=== PATIENT | female | born 1945 | race Caucasian/White ===

== ENCOUNTER 2016-12-07 13:43 | Inpatient (IN) | payer MEDICARE, OTHER ==
--- NOTE | ~2016-12-07 | HP ---
History And Physical [facility] [address] [place]. [address] NAME: LUCIANA AKERS : 43 STATUS : ADM IN [facility]#: [id number] AGE: 71 ADM/REG DATE : 12/07/16 MR#: [id number] REPORT SERV DATE: 12/07/16 DICTATED BY: NISHA BAEZA DATE: 12/07/16 REPORT STATUS : Draft TRANSCRIBED BY: MODKelly DATE: 12/07/16 DATE OF ADMISSION: 12/07/2016 CHIEF COMPLAINT: "I have been sent by a [facility] doctor, since my platelets have been low." HISTORY OF PRESENT ILLNESS: This is a very pleasant 71-year-old female. She has no significant past medical history except for osteopenia and osteoporosis that she has not taken any medication, presenting today to [facility] after she has been evaluated in an outpatient physician care clinic in [place] for petechial rash that she developed on her legs and right arm since Saturday. According to the patient, about three to four weeks ago, she has had a tick bite that has been removed. She has not had any complaints since then. Maybe some loose bowel movements, but no diarrhea and some intermittent dual headaches. On Saturday, she started to develop petechial rash on bilateral lower extremities and right arm. At that time, she went to the clinic in [place] and initial blood work has found that her platelets were low. The patient has been started on doxycycline and she had been called back yesterday to repeat the blood work and it has been confirmed that her platelets were low. The patient felt extremely tired, but she did not have any fever. No chest pain or shortness of breath. No hematuria. No bloody stools. No hematemesis. No melena. No hematochezia. No gingival bleeding. No other complaints. The petechial rash remained the same. It has not progressed, but due to abnormalities of the platelets, the patient has been sent to [facility] Emergency Room. There was no headache. There was no chest pain or increasing shortness of breath. There was no PND or orthopnea. There was no nausea, vomiting or diarrhea reported. Just some loose bowel movements. No constipation. No other complaints. No recent hospitalization. No sick contacts. No exposure factors. After initial evaluation in the emergency room, Hospitalist Service has been asked for admission, further evaluation, and treatment. PAST MEDICAL HISTORY: Past medical history is significant for osteopenia and osteoporosis. PAST SURGICAL HISTORY: Includes and appendectomy. SOCIAL HISTORY: Denies tobacco, alcohol, or IV drugs. The patient does not have any drug allergies. MEDICATION: She takes doxycycline, started 3 days ago and glucosamine chondroitin. FAMILY HISTORY: Significant for PE. PHYSICAL EXAMINATION: VITAL SIGNS: The patient is afebrile. Blood pressure 133/63, heart rate 77, respiratory rate 16, and saturating 96% on room air. GENERAL: She is a very pleasant, well-developed, well-nourished female, in no acute distress. She is alert and oriented x3. Nonfocal. She follows all her commands appropriately. HEENT: Exam shows pupils equal, round, and reactive to light. Extraocular movements History And Physical [address] [address] NAME: LUCIANA AKERS : 43 STATUS : ADM IN [facility]#: [id number] AGE: 71 ADM/REG DATE : 12/07/16 MR#: [id number] REPORT SERV DATE: 12/07/16 DICTATED BY: INSHA BAEZA DATE: 12/07/16 REPORT STATUS : Draft TRANSCRIBED BY: GRETEL DATE: 12/07/16 intact. NECK: No JVD. No lymphadenopathy. No thyromegaly appreciated. CHEST: Eval shows bilateral air entry. Clear anteroposterior. No wheezes, crackles, or rhonchi appreciated. CARDIOVASCULAR: She has regular rate and rhythm. S1, S2 positive. No S3, no S4. No murmurs, rubs, or gallops appreciated. ABDOMEN: Soft with positive bowel sounds. Nontender. No guarding. No rebound. EXTREMITIES: No clubbing, cyanosis, or edema. NEUROLOGIC: She is alert and oriented x3. Nonfocal. She follows all her commands appropriately. SKIN: There is a petechial rash on the bilateral lower extremities as well as the left arm. MUSCULOSKELETAL: She is intact. LABORATORY DATA: Labs from today include: Sodium 143, potassium 4.1, chloride 111, CO2 of 27, BUN 11, creatinine 0.78, glucose is 90, calcium is 8.8. Her total protein 7.1, albumin 3, globulin 4.1, total bilirubin 0.4, alkaline phosphatase 127, ALT 33, AST 32. Also white count is 6.9, hemoglobin 11.6, hematocrit 34.6, and platelets are 5. INR is 1. ASSESSMENT AND PLAN: This is a very pleasant 71-year-old female with: 1. 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 2. Tick bite, recent. 3. History of osteoarthritis and osteoporosis. The patient is going to be admitted to Hospitalist Service. Regarding her thrombocytopenia, I am going to place her on high doses with dexamethasone. We are going to hold on platelet transfusion. For now, I have discussed with Dr. Arnold, Hematology, on-call, who is going to evaluate the patient. I am going to check on vitamin B12, ferritin and LDH. Follow all the labs closely. Recent tick bite, we are going to continue her doxycycline and check a [place] spotted fever antibody as well as Ehrlichia antibody. Follow up a.m. labs. We are going to provide reasonable pain and nausea control. Further workup and recommendation pending above. It is worthwhile to note that the patient is going to be followed by Dr. John Mackay. CF/MODL Nisha Baeza M.D. / [id number] CC: MD Alexandr Eagle II, MD
--- NOTE | ~2016-12-07 | CN ---
Consultation Report [facility] [address] [place]. [address] NAME: LUCIANA AKERS : 43 STATUS : ADM IN [facility]#: [id number] AGE: 71 ADM/REG DATE : 12/07/16 MR#: [id number] REPORT SERV DATE: 12/08/16 DICTATED BY: ROSMERY PAGE III DATE: 12/07/16 REPORT STATUS : Draft TRANSCRIBED BY: GRETEL DATE: 12/07/16 CONSULTATION NOTE DATE OF CONSULTATION: 12/07/2016 REASON FOR CONSULTATION: Thrombocytopenia. HISTORY OF PRESENT ILLNESS: Ms. Akers is a 71-year-old female, who previously has been very healthy who noted five days of a rash and easy bruising. The rash is predominantly located on her lower extremities and is red associated with some itching and tenderness to palpation. It has been worsening and has not resolved. She has not noted any recent bleeding. She also denies any recent night sweats, fevers, chills, or weight loss, or change in her energy level. She does report having a tick on her roughly one to two weeks ago but states this was on her for less than 24 hours. PAST MEDICAL HISTORY: Negative other than osteopenia. SOCIAL HISTORY: Negative for tobacco or alcohol abuse. She was recently , just 2 weeks ago. FAMILY HISTORY: Significant for her father who had leukemia and a brother who has had several blood clots. HOME MEDICATIONS: List is significant for doxycycline and glucosamine. ALLERGIES: NO KNOWN DRUG ALLERGIES. REVIEW OF SYSTEMS: A comprehensive review of systems was performed and is negative unless noted in the HPI. PHYSICAL EXAMINATION: VITAL SIGNS: Blood pressure 120/56, temperature is 98.2, pulse is 81, respirations 16. GENERAL: A well-developed well-nourished female in no acute distress. EYES: Pupils are round and reactive to light. Extraocular muscles are intact. There are anicteric sclerae. NECK: Supple with no masses or thyroid enlargement. No JVD. CARDIOVASCULAR: Regular rate and rhythm with no audible murmurs, gallops, or rubs. LUNGS: Clear to auscultation bilaterally with normal respiratory effort. ABDOMEN: Soft, nondistended, nontender. Positive bowel sounds with no hepatosplenomegaly. SKIN: Warm and dry with good skin turgor. There are petechiae on bilateral lower extremities and scattered ecchymoses on her extremities. PSYCH: She is alert, oriented, comprehends our conversation with normal judgment and affect. LYMPHATIC EXAM: Negative for any cervical, supraclavicular, infraclavicular, or axillary lymphadenopathy. Consultation Report [place] [id number] [address] NAME: LUCIANA AKERS : [birth year] STATUS : ADM IN [facility]#: [id number] AGE: 71 ADM/REG DATE : 12/07/16 MR#: [id number] REPORT SERV DATE: 12/08/16 DICTATED BY: ROSMERY PAGE III DATE: 12/07/16 REPORT STATUS : Draft TRANSCRIBED BY: GRETEL DATE: 12/07/16 DATA: Her CBC showed a white blood cell count of 6.9, hemoglobin of 11.6, and platelet count of 5. Her chemistry was reviewed and is significant for LDH, mildly elevated at 354. Her ferritin is normal. Her folic acid is normal, and B12 is normal. Her peripheral smear was personally reviewed. The white blood cell had normal morphology. Red blood cells had normal morphology, and platelets had decreased count but with large platelets. 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 Her peripheral smear was without significant findings to suggest an underlying bone marrow disorder. She has not had any bleeding. Therefore, there is no indication for transfusion at this time. We will start her on pulse dexamethasone 40 mg p.o. daily for four days. She likely can be discharged in the morning. BMA/GRETEL Rosmery Page III, M.D. / [id number] CC: MD Alexandr Eagle II, MD
--- NOTE | ~2016-12-07 | DS ---
Discharge Summary [facility] [address] [facility] [place]. [address] NAME: LUCIANA AKERS : 43 STATUS : DIS IN PAT#: [id number] AGE: 71 ADM/REG DATE : 12/07/16 MR#: [id number] REPORT SERV DATE: 12/09/16 DICTATED BY: DATE: REPORT STATUS : Draft TRANSCRIBED BY: MODL DATE: 12/09/16 ADMISSION DATE: 12/07/2016 DISCHARGE DATE: 12/09/2016 PRIMARY ONCOLOGIST: Luis Arnold M.D. DISCHARGE DIAGNOSES: 1. 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 2. Recent tick bite prior to admission. 3. Osteoarthritis/osteoporosis history. CONSULTATIONS: Dr. Luis Arnold, [facility], 12/08/2016. PERTINENT TESTS AND PROCEDURES: 1. CT of brain without contrast, 12/07/2016, impression: No evidence of acute intracranial traumatic injury or pathology. 2. Chest x-ray, 12/07/2016, impression: Lungs clear, heart size normal. No significant interval change from November 2015. 3. A1c, 12/07/2016, result: 5.3. 4. Urinalysis, specimen obtained 12/07/2016, result: Small leukocyte esterase, negative nitrites, 1 red blood cell, 7 white blood cells, less than 1 epithelial/squamous cell, rare bacteria. 5. Urine culture, 12/09/2016, final result: No growth at two days. 6. Pending labs obtained 12/07/2016 include Ehrlichia IgM, RMSF IgG/IgM, and Rickettsia antibody panel. CHIEF COMPLAINT UPON ADMISSION: Referral from walk-in clinic for evaluation and treatment of low platelets. HOSPITAL COURSE: Briefly, the patient is a 71-year-old female with no significant past medical history except for osteoarthritis/osteoporosis and recent tick bite. Prior to presenting to [facility] on 12/07/2016, the patient had presented to [facility] walk-in clinic with complains of petechial rash that she developed on her bilateral upper and lower extremities on Saturday. Initial evaluation and workup included labs. At the time of admission, the patient's platelets count was reported to be 5000. The patient was admitted for further evaluation and treatment and Oncology was consulted. Oncology assessment included additional lab work which reported mildly elevated LDH at 354. Ferritin, folic acid, and B12 were all within normal range. Peripheral smear was personally reviewed by Oncology. White blood cell and red blood cells had normal morphology and platelets had decreased count, but with large platelets. Oncology suspected immune thrombocytopenic purpura. Peripheral smear was without significant findings to suggest an underlying bone marrow disorder. The patient has not had any signs or symptoms of bleeding and there was no indication for transfusion of platelets Discharge Summary [address] [place]. [address] NAME: LUCIANA AKERS : 43 STATUS : DIS IN PAT#: [id number] AGE: 71 ADM/REG DATE : 12/07/16 MR#: [id number] REPORT SERV DATE: 12/09/16 DICTATED BY: DATE: REPORT STATUS : Draft TRANSCRIBED BY: MODL DATE: 12/09/16 at the time of admission. The patient was started on pulse dexamethasone 40 mg p.o. daily for four days. Platelets increased [place] 5000 [place] 9000 [place] [address] upon day of discharge. The patient will follow up with Dr. Arnold at outpatient to continue monitoring and further recommendations for pulse dexamethasone. 1. Suspected immune thrombocytopenic purpura. The patient's platelets began trending upward without transfusion. Platelets were reported to be 42,000 on day of discharge. The patient will continue dexamethasone 40 mg p.o. through tomorrow and then stop. The patient will follow up with Dr. Arnold on Saturday and then we will restart dexamethasone per Oncology instructions. At the time of discharge, the patient had no clinical signs or symptoms of bleeding. 2. Recent tick bite. The patient removed a tick from her right chest wall three-four weeks ago. The patient was started on doxycycline 100 mg p.o. twice daily per her primary care physician. The patient continued this medication through this admission and was advised to complete course as recommended by outpatient provider. There were no residual signs or symptoms of tick bite to right chest wall. Skin was without rash, redness, or swelling. 3. History of osteoarthritis/osteoporosis. DISCHARGE CONDITION: The patient is hemodynamically stable. DISCHARGE DIET: Regular diet as tolerated. DISCHARGE MEDICATIONS: 1. Dexamethasone 4 mg tablet, take 40 mg p.o. daily. Last dose 12/10/2016. Dose to resume per Oncology instructions. 2. Doxycycline 100 mg tablet p.o. twice daily. This medication was started as an outpatient on 12/04/2016 and the patient is to continue x14 days to treat recent tick bite. 3. Glucosamine one tablet p.o. twice daily. DISCHARGE INSTRUCTIONS: The patient is to follow up with Dr. Arnold, [facility] on Saturday. The patient was instructed to return to the emergency department for any acute onset of uncontrolled bleeding, significantly increased bruising, fever of 100.4 or greater lasting more than one hour, or any other health concerns that are deviations from her baseline status at the time of this discharge. RASTA/GRETEL Emmy Denis [employer] Discharge Summary [address] [address] NAME: LUCIANA AKERS : 43 STATUS : DIS IN PAT#: [id number] AGE: 71 ADM/REG DATE : 12/07/16 MR#: [id number] REPORT SERV DATE: 12/09/16 DICTATED BY: DATE: REPORT STATUS : Draft TRANSCRIBED BY: GRETEL DATE: 12/09/16 / [id number] CC: MD Alexandr Eagle II, MD Bertrand Marquess Anz III, M.D.
[2016-12-07 13:26] LABS: BASOPHILS 0.6 %; BASOPHILS ABSOLUTE 0.04 10/3/uL (0.0-0.16); EOSINOPHILS 0.9 %; EOSINOPHILS ABSOLUTE 0.06 10/3/uL (0.0-0.53); ER CBC TAT 0 Hrs 08 Mins; HEMOGLOBIN 11.6 g/dL (12.0-16.0); IMMATURE GRANULOCYTES 0.7 %; IMMATURE GRANULOCYTES ABSOLUTE 0.05 10/3/uL (0.0-0.11); LYMPHOCYTES 56.1 %; LYMPHOCYTES ABSOLUTE 3.88 10/3/uL (0.67-4.30); MEAN CORPUS HGB CONC 33.5 g/dL (32.0-36.0); MEAN CORPUSCULAR HEMOGLOB 27.2 pg (26.0-34.0); MONOCYTES 7.9 %; MONOCYTES ABSOLUTE 0.55 10/3/uL (0.21-1.20); NEUTROPHILS 33.8 %; NEUTROPHILS ABSOLUTE 2.34 10/3/uL (2.02-8.40); RBC DISTRIBUTION WIDTH 14.4 % (12.0-16.0); RED CELL COUNT 4.26 10/6/uL (4.0-5.6); WHITE BLOOD CELLS 6.9 10/3/uL (4.5-10.5)
[2016-12-07 13:31] LABS: HEMATOCRIT 34.6 % (36.0-48.0); MEAN CORPUSCULAR VOLUME 81.2 fL (80-100)
[2016-12-07 13:32] LABS: MANUAL DIFF NO %; PLATELET COUNT 5 10/3/uL (150-400)
[2016-12-07 13:35] LABS: PARTIAL THROMBO TIME 48.4 SEC (22.5-37.2); PROTIME (NOT ORD) 13.2 SEC (12.0-14.5)
[2016-12-07 13:39] LABS: A/G RATIO 0.7 (0.7-1.9); ALKALINE PHOSPHATASE 127 U/L (45-117); BUN (BLOOD UREA NITROGEN) 11 MG/DL (6-23); CALCIUM, SERUM 8.8 MG/DL (8.5-10.4); CHLORIDE, SERUM 111 MMOL/L (96-112); CO2 (CARBON DIOXIDE) 27 MMOL/L (24-34); CREATININE 0.78 MG/DL (0.55-1.02); GFR AFRICAN AMERICAN 88 ML/MIN (>=60); GFR NON AFRICAN AMERICAN 76 ML/MIN (>=60); GLOBULIN 4.1 G/DL (2.5-4.1); GLUCOSE, SERUM 90 MG/DL (60-99); POTASSIUM, SERUM 4.1 MMOL/L (3.5-5.3); SGOT(AST) 32 U/L (5-40); SGPT(ALT) 33 U/L (5-65); SODIUM, SERUM 143 MMOL/L (135-148); TOTAL BILIRUBIN 0.4 MG/DL (0-1.2); TOTAL PROTEIN 7.1 G/DL (6.0-8.5)
[2016-12-07 13:44] LABS: RBC MORPHOLOGY NORM (NORMAL)
[2016-12-07] MEDS ORDERED: VIBRATAB100 MG PO (13:51)
[2016-12-07] MEDS ORDERED: GLUCCHONDR PO (13:59)
[2016-12-07 18:29] LABS: FERRITIN 269 NG/ML (8-252); FREE T4 1.06 NG/DL (0.76-1.46); IRON BINDING CAPACITY 272 MCG/DL (225-410); IRON, SERUM 41 MCG/DL (35-150); PHOSPHORUS, SERUM 3.2 MG/DL (2.5-4.5)
[2016-12-07 18:30] LABS: DIRECT BILIRUBIN < 0.1 MG/DL (0.0-0.4); FOLATE 23.4 NG/ML (>5.2); INDIRECT BILIRUBIN(NOT ORDER) 0.3 MG/DL (0.1-0.9)
[2016-12-07 21:32] LABS: ASCORBIC ACID (UR NOT ORDER) NEG (NEG); BILIRUBIN, URINE NEGATIVE (NEG); KETONE, URINE NEGATIVE (NEG); LEUKOCYTE ESTERASE(NOT OR SMALL (NEG); WBC (NOT ORDERED) (RFLEX) 7 (0-5)
[2016-12-08 05:57] LABS: A/G RATIO 0.7 (0.7-1.9); ALBUMIN 2.8 G/DL (3.5-5.0); ALKALINE PHOSPHATASE 117 U/L (45-117); CALCIUM, SERUM 8.3 MG/DL (8.5-10.4); CHLORIDE, SERUM 112 MMOL/L (96-112); CO2 (CARBON DIOXIDE) 24 MMOL/L (24-34); CREATININE 0.73 MG/DL (0.55-1.02); GFR AFRICAN AMERICAN 95 ML/MIN (>=60); GFR NON AFRICAN AMERICAN 82 ML/MIN (>=60); GLOBULIN 3.8 G/DL (2.5-4.1); POTASSIUM, SERUM 4.1 MMOL/L (3.5-5.3); SGOT(AST) 32 U/L (5-40); SGPT(ALT) 37 U/L (5-65); SODIUM, SERUM 145 MMOL/L (135-148); TOTAL BILIRUBIN 0.4 MG/DL (0-1.2); TOTAL PROTEIN 6.6 G/DL (6.0-8.5)
[2016-12-08 06:00] LABS: BUN (BLOOD UREA NITROGEN) 19 MG/DL (6-23); GLUCOSE, SERUM 156 MG/DL (60-99)
[2016-12-08 07:08] LABS: BASOPHILS 0.2 %; BASOPHILS ABSOLUTE 0.01 10/3/uL (0.0-0.16); EOSINOPHILS 0 %; HEMATOCRIT 33.9 % (36.0-48.0); HEMOGLOBIN 11.3 g/dL (12.0-16.0); IMMATURE GRANULOCYTES 0.9 %; IMMATURE GRANULOCYTES ABSOLUTE 0.05 10/3/uL (0.0-0.11); LYMPHOCYTES 30.8 %; LYMPHOCYTES ABSOLUTE 1.68 10/3/uL (0.67-4.30); MEAN CORPUS HGB CONC 33.3 g/dL (32.0-36.0); MEAN CORPUSCULAR VOLUME 81.1 fL (80-100); MONOCYTES 2.7 %; MONOCYTES ABSOLUTE 0.15 10/3/uL (0.21-1.20); NEUTROPHILS 65.4 %; NEUTROPHILS ABSOLUTE 3.57 10/3/uL (2.02-8.40); RBC DISTRIBUTION WIDTH 14.3 % (12.0-16.0); RED CELL COUNT 4.18 10/6/uL (4.0-5.6); WHITE BLOOD CELLS 5.5 10/3/uL (4.5-10.5)
[2016-12-08 07:10] LABS: PLATELET COUNT 9 10/3/uL (150-400)
[2016-12-08 07:11] LABS: MANUAL DIFF NO %
[2016-12-08 07:48] LABS: RBC MORPHOLOGY NORM (NORMAL)
[2016-12-09 06:20] LABS: BASOPHILS 0.1 %; BASOPHILS ABSOLUTE 0.01 10/3/uL (0.0-0.16); EOSINOPHILS 0 %; HEMATOCRIT 33.7 % (36.0-48.0); HEMOGLOBIN 11.4 g/dL (12.0-16.0); IMMATURE GRANULOCYTES 0.4 %; IMMATURE GRANULOCYTES ABSOLUTE 0.06 10/3/uL (0.0-0.11); LYMPHOCYTES 16.7 %; LYMPHOCYTES ABSOLUTE 2.58 10/3/uL (0.67-4.30); MEAN CORPUS HGB CONC 33.8 g/dL (32.0-36.0); MEAN CORPUSCULAR HEMOGLOB 27.3 pg (26.0-34.0); MEAN CORPUSCULAR VOLUME 80.8 fL (80-100); MEAN PLATELET VOLUME 11.3 fL (9.2-13.0); MONOCYTES 6.7 %; MONOCYTES ABSOLUTE 1.03 10/3/uL (0.21-1.20); NEUTROPHILS 76.1 %; NEUTROPHILS ABSOLUTE 11.74 10/3/uL (2.02-8.40); RBC DISTRIBUTION WIDTH 14.6 % (12.0-16.0); RED CELL COUNT 4.17 10/6/uL (4.0-5.6)
[2016-12-09 06:22] LABS: MANUAL DIFF NO %; PLATELET COUNT 42 10/3/uL (150-400); WHITE BLOOD CELLS 15.4 10/3/uL (4.5-10.5)
[2016-12-09 06:59] LABS: POLYCHROMASIA 1+ (2-5/OIF) (0-1/OIF)
[2016-12-09] MEDS ORDERED: DEX4 PO (12:56)
[2016-12-18 13:51] LABS: RICKETTSIA TYPHI AB IGM <1:64 (LTD64); ROCKY MTN SPOTTED FEVER AB IGM <1:64 (LTD64)
[2016-12-22 13:46] LABS: ROCKY MTN SPOTTED FEVER AB IGG <1:64 (LTD64); ROCKY MTN SPOTTED FEVER AB IGM <1:64 (LTD64)
== END 2016-12-09 13:51 | disposition home or self-care (01) | DRG 813 ==
LOC: ER 13:43 → 4EA 15:39
PROVIDERS: Emergency Medicine; Internal Medicine; Nurse Practitioner Family
DX: D69.3 Immune thrombocytopenic purpura (principal); M81.0 Age-related osteoporosis without current pathological fracture
CPT/HCPCS: 36415; 70450; 71010; 80053; 81001; 82248; 82607; 82728; 82746; 83036; 83540; 83550; 83615; 83735; 84100; 84439; 84443; 85025; 85610; 85730; 86666; 86666-59; 86757; 86757-59; 86850; 86900; 86901; 87086; 93005; 99285; A9270-GY